=== PATIENT | male | born 1975 | race Caucasian/White ===

== ENCOUNTER 2022-11-11 08:33 | Outpatient (CLI) | payer BC, SELFPAY ==
[2022-11-11 15:17] LABS: Chlamydia DNA Amplified* NOT DETECTED (No Detected); GC DNA Amplified* NOT DETECTED (No Detected)
== END 2022-11-11 08:34 | disposition home or self-care (01) ==
PROVIDERS: PCP Family Medicine; Visit Provider Family Medicine
DX: Z00.00 Encounter for general adult medical examination without abnormal findings (principal); Z13.6 Encounter for screening for cardiovascular disorders; Z11.3 Encounter for screening for infections with a predominantly sexual mode of transmission; Z11.59 Encounter for screening for other viral diseases
CPT/HCPCS: 0353U; 80053; 80061; 86592; 86703; 86803

== ENCOUNTER 2024-07-13 08:28 | Outpatient (CLI) | payer SELFPAY | END 2024-07-13 08:29 | disposition home or self-care (01) | PROVIDERS: PCP Family Medicine; Visit Provider Family Medicine | DX: Z13.6 Encounter for screening for cardiovascular disorders (principal); Z12.5 Encounter for screening for malignant neoplasm of prostate | CPT/HCPCS: 80053; 80061; G0103 ==